=== PATIENT | female | born 1995 | race Caucasian/White ===

== ENCOUNTER 2016-06-15 06:33 | Day surgery (SDC) | payer OTHER ==
[~2016-06-15] VITALS: Ht 157.5 cm; Wt 62.6 kg
[~2016-06-15 06:33] MED LIST: FERROUS SULFAT325 M1 PO; HUMULIN N100 U/ML SC; NOVOLIN R100 U/ML SUBQ; PRENATAL VITAMI1 T10 PO
[2016-06-15] MEDS ORDERED: ONDANSETRON 4 MG/2 ML VIAL ONE (07:15)
[2016-06-15] MEDS ORDERED: DEXAMETHASONE 4 MG/ML VIAL ONE (07:15)
[2016-06-15] MEDS ORDERED: SUCCINYLCHOLINE CHLORIDE 200 MG/10 ML VIAL IVP ONE (07:15)
[2016-06-15] MEDS ORDERED: SEVOFLURANE 250 ML BTL INH ONE (07:15)
[2016-06-15] MEDS ORDERED: PROPOFOL 200 MG/20 ML VIAL IV ONE (07:15)
[2016-06-15] MEDS ORDERED: ONE DAILY FOR1 EACH PO (07:17)
[2016-06-15] MEDS ORDERED: MIDAZOLAM 2 MG/2 ML VIAL ONE (07:27)
[2016-06-15] MEDS ORDERED: MEPERIDINE 50 MG/ML SYR ONE (07:28)
[2016-06-15] MEDS ORDERED: fentaNYL 0.05 MG/ML VIAL ONE (07:28)
[2016-06-15] MEDS ORDERED: BUPIVACAINE-MPF/EPI 0.5% 10 ML VIAL INJ ONE (07:32)
[2016-06-15] MEDS ORDERED: diphenhydrAMINE 50 MG/ML VIAL IVP PRN (07:50)
[2016-06-15] MEDS ORDERED: LACTATED RINGERS 1,000 ML IV SCH (07:50)
[2016-06-15] MEDS ORDERED: HYDROmorphone 1 MG/ML AMP IVP PRN (07:50)
[2016-06-15] MEDS ORDERED: MEPERIDINE 25 MG/ML SYR IVP PRN (07:50)
[2016-06-15] MEDS ORDERED: ONDANSETRON 4 MG/2 ML VIAL IVP PRN ×2 (07:50→08:00)
[2016-06-15] MEDS ORDERED: ACETAMINOPHEN/CODEINE 300/30MG 1 TAB PO PRN (08:00)
[2016-06-15] MEDS ORDERED: MORPHINE SULFATE 4 MG/ML SYR IM/IVP PRN (08:00)
[2016-06-15] MEDS ORDERED: IBUPROFEN 800 MG TAB PO PRN (08:00)
[2016-06-15] MEDS ORDERED: MEPERIDINE 25 MG/ML SYR ONE (08:53)
== END 2016-06-15 11:20 | disposition home or self-care (01) ==
LOC: MDS 06:33 → MMU 06:34 → MDS 11:20
PROVIDERS: ATTEND Obstetrics & Gynecology
DX: Z30.2 Encounter for sterilization (principal)
CPT/HCPCS: 36415; 58600; 80053; 84702; 85025; 88302; J0330; J0690; J1100; J2175; J2250; J2270; J2405; J2704; J3010; J3490; J7060; J7120

== ENCOUNTER 2020-12-25 14:11 | Emergency (ER) | payer OTHER ==
[~2020-12-25] VITALS: Ht 157.5 cm; Wt 73.9 kg
[~2020-12-25 14:11] MED LIST changes: -FERROUS SULFAT325 M1 PO; +FOLI-119 PO; -HUMULIN N100 U/ML SC; -NOVOLIN R100 U/ML SUBQ; -PRENATAL VITAMI1 T10 PO
[2020-12-25 14:27] VITALS: BP 125/73
--- NOTE | 2020-12-25 14:30 | NUR ---
PT TO WAIT IN TENT.
--- NOTE | 2020-12-25 14:34 | NUR ---
DR. ARVIZU WITH PT IN TENT FOR FURTHER EVALUATION.
[2020-12-25] MEDS ORDERED: IBUPROFEN 600 MG TAB PO ONE (14:50)
--- NOTE | 2020-12-25 14:57 | NUR ---
25 Y/O FEMALE C/O LEFT LEG PAIN 8/10, HEADACHE X2DAYS, PT STATES SHE WAS SEEN AT [facility] AND PRESCRIBED TRAMADOL AND NAPROXEN WITH NO RELIEF. DENIES N/V, DENIES FEVER/CHILLS. DENIES PMH NKA
--- NOTE | 2020-12-25 15:21 | NUR ---
PT CALLED IN TENT FOR MD ORDERS, NO ANSWER. MD MADE AWARE.
--- NOTE | 2020-12-25 15:31 | NUR ---
PT CALLED IN TENT FOR SECOND TIME, NO ANSWER. MADE AWARE.
--- NOTE | 2020-12-25 15:41 | NUR ---
PT CALLED IN TENT FOR THIRD TIME, NO ANSWER. MADE AWARE.
--- NOTE | 2020-12-25 15:55 | NUR ---
PT IN TENT. MADE AWARE.
--- NOTE | 2020-12-25 16:17 | NUR ---
PT GIVEN CRUTCHES THAT WERE ADJUSTED TO PT'S SIZE AND HEIGHT. PT GIVEN ONE ON ONE INSTRUCTIONS ON HOW TO USE CRUTCHES AND PT SHOWED PROPPER DEMONSTRATION ON HOW TO USE THEM. RN AND PA NOTIFIED.
[2020-12-25] MEDS ORDERED: IBUP-2213 PO (16:22)
[2020-12-25 16:50] VITALS: BP 122/70
--- NOTE | 2020-12-25 16:51 | NUR ---
Patient discharged with v/s stable. Written and verbal after care instructions given [place] and explained. Patient alert, oriented and verbalized understanding of instructions. Ambulatory with steady gait. All questions addressed prior to discharge. ID band removed. Patient advised to follow up with PMD. Rx of IBUPROFEN 600MG PO Q6H PRN PAIN given. Patient educated on indication of medication including possible reaction and side effects. Opportunity to ask questions provided and answered.
== END 2020-12-25 16:51 | disposition home or self-care (01) ==
LOC: MED 14:11
DX: S93.402A Sprain of unspecified ligament of left ankle, initial encounter (principal); S09.90XA Unspecified injury of head, initial encounter; W19.XXXA Unspecified fall, initial encounter; Y93.89 Activity, other specified; Y92.89 Other specified places as the place of occurrence of the external cause; Y99.8 Other external cause status
CPT/HCPCS: 70450; 73590; 73610; 99284

== ENCOUNTER 2022-04-27 07:37 | Emergency (ER) | payer OTHER ==
[~2022-04-27] VITALS: Ht 154.9 cm; Wt 73.9 kg
[~2022-04-27 07:37] MED LIST changes: +IBUP-2213 PO
[2022-04-27 07:58] VITALS: BP 123/56
[2022-04-27] MEDS ORDERED: IBUPROFEN 600 MG TAB PO ONE (08:50)
[2022-04-27] MEDS ORDERED: DEXAMETHASONE 10 MG/ML VIAL PO ONE (08:50)
[2022-04-27] MEDS ORDERED: AMOXICILLIN 500 MG CAP PO ONE (09:00)
--- NOTE | 2022-04-27 09:00 | NUR ---
27/F WALKED IN C/O SORE THROAT AND INTERMITTENT FEVERS X 1 MONTH. PATIENT REPORTS DIFFICULTY SWALLOWING. AAO4, AMBULATORY, VITALS STABLE PMH: DENIES
[2022-04-27] MEDS ORDERED: LIDO100S PO (09:44)
[2022-04-27] MEDS ORDERED: MENT7.6L6 PO (09:44)
[2022-04-27] MEDS ORDERED: AMOX500C25 PO (09:44)
[2022-04-27] MEDS ORDERED: IBUP-2213 PO (09:44)
[2022-04-28] MEDS ORDERED: PHEN177S23 PO (15:36)
[2022-04-28] MEDS ORDERED: BENZ-300 PO (15:36)
== END 2022-04-27 09:50 | disposition home or self-care (01) ==
LOC: MED 07:37
DX: J02.9 Acute pharyngitis, unspecified (principal); Z20.822 Contact with and (suspected) exposure to COVID-19; R50.9 Fever, unspecified; R13.10 Dysphagia, unspecified; Z79.899 Other long term (current) drug therapy
CPT/HCPCS: 87081; 87426; 87804; 99284; J1100

== ENCOUNTER 2022-04-28 15:00 | Emergency (ER) | payer OTHER ==
[~2022-04-28] VITALS: Ht 157.5 cm; Wt 74.4 kg
[~2022-04-28 15:00] MED LIST changes: +AMOX500C25 PO; +LIDO100S PO; +MENT7.6L6 PO
[2022-04-28 15:03] VITALS: BP 109/64
--- NOTE | 2022-04-28 15:14 | NUR ---
PT AMB TO BED 12.
--- NOTE | 2022-04-28 15:20 | NUR ---
27 Y/O FEMALE BIB SELF C/O SORE THROAT X 4 DAYS . WAS SEEN IN THE ED 04/27/22 FOR STREP THROAT AND C/O LOWER ABD PAIN, VAGINAL PAIN, URINARY BURNING X 4 DAYS . DENIES ANY DISCHARGE, BLEEDING OR ITCHING. SEEN AT [facility] X2 DAYS AGO FOR BACTERIAL VAGINOSIS. DENIES ANY NV, DIARRHEA PMH: DENIES NKA
[2022-04-28] MEDS ORDERED: BENZ-300 PO (15:36)
[2022-04-28] MEDS ORDERED: PHEN177S23 PO (15:36)
--- NOTE | 2022-04-28 16:00 | NUR ---
Patient discharged with v/s stable. Written and verbal after care instructions ABOUT STREP THROAT given and explained. Patient alert, oriented and verbalized understanding of instructions. Ambulatory with steady gait. All questions addressed prior to discharge. ID band removed. Patient advised to follow up with PMD. Rx of CEPACOL, PHENOL given. Patient educated on indication of medication including possible reaction and side effects. Opportunity to ask questions provided and answered.
== END 2022-04-28 16:00 | disposition home or self-care (01) ==
LOC: MED 15:00
DX: J02.0 Streptococcal pharyngitis (principal); Z79.899 Other long term (current) drug therapy
CPT/HCPCS: 99282

== ENCOUNTER 2022-07-29 12:37 | Emergency (ER) | payer OTHER ==
[~2022-07-29] VITALS: Ht 157.5 cm; Wt 74.9 kg
[~2022-07-29 12:37] MED LIST changes: +BENZ-300 PO; +PHEN177S23 PO
[2022-07-29 12:49] VITALS: BP 142/95
--- NOTE | 2022-07-29 13:06 | NUR ---
PT AMBULATED TO ER BED 1
--- NOTE | 2022-07-29 13:10 | NUR ---
MD performed vaginal exam patient tolerated well. RN at bedside the whole procedure.
[2022-07-29] MEDS ORDERED: KETOROLAC 15 MG/ML VIAL IM ONE (13:20)
[2022-07-29 13:57] LABS: BASOPHILS % (AUTO) 0.4 % (0.0-2.0); EOSINOPHILS # (AUTO) 0.1 K/uL (0-0.4); EOSINOPHILS % (AUTO) 1.1 % (0.0-4.0); HEMATOCRIT 36.5 % (36-48); HEMOGLOBIN 12.7 g/dL (12.0-16.0); LYMPHOCYTES # (AUTO) 1.5 K/uL (2.5-16.5); LYMPHOCYTES % (AUTO) 19.7 % (20.5-51.1); MEAN CORPUSCULAR HEMOGLOBIN 29 pg (27-31); MEAN CORPUSCULAR HGB CONC 35 g/dL (33-37); MEAN CORPUSCULAR VOLUME 83.1 fL (80-94); MONOCYTES # (AUTO) 0.4 K/uL (0.8-1.0); MONOCYTES % (AUTO) 5.4 % (1.7-9.3); NEUTROPHILS # (AUTO) 5.6 K/uL (1.8-7.7); NEUTROPHILS % (AUTO) 73.4 % (42.2-75.2); PLATELET COUNT (AUTO) 222 K/uL (140-450); RED BLOOD CELL COUNT(AUTO) 4.39 MIL/uL (4.20-5.40); RED CELL DISTRIBUTION WIDTH 13.3 % (11.6-13.7); WHITE BLOOD COUNT (AUTO) 7.6 K/uL (4.8-10.8)
--- NOTE | 2022-07-29 14:00 | NUR ---
PT MOVED TO ER BED 2
[2022-07-29 14:07] LABS: APPEARANCE,URINE CLEAR (CLEAR); BILIRUBIN,URINE NEGATIVE (NEGATIVE); BLOOD, URINE NEGATIVE (NEGATIVE); COLOR,URINE YELLOW (YELLOW); LEUKOCYTE ESTERASE ,URINE NEGATIVE (NEGATIVE); NITRITE, URINE NEGATIVE (NEGATIVE); PH,URINE 6.5 (5.0-9.0); UGLUCOSE NEGATIVE (NEGATIVE)
[2022-07-29 14:12] LABS: ALBUMIN 4.1 g/dL (3.4-5.0); ANION GAP 13.1 (8-16); CARBON DIOXIDE 26.3 mmol/L (21-32); CREATININE 0.7 mg/dL (0.6-1.3); POTASSIUM 3.4 mmol/L (3.5-5.1); TOTAL BILIRUBIN 0.5 mg/dL (0.0-1.0)
--- NOTE | 2022-07-29 15:44 | NUR ---
Patient discharged with v/s stable. Written and verbal after care instructions given and explained. Patient verbalized understanding. Ambulatory with steady gait. All questions addressed prior to discharge. Advised to follow up with PMD.
== END 2022-07-29 15:43 | disposition home or self-care (01) ==
LOC: MED 12:37
DX: N83.202 Unspecified ovarian cyst, left side (principal); Z79.899 Other long term (current) drug therapy; Z79.1 Long term (current) use of non-steroidal anti-inflammatories (NSAID); Z79.2 Long term (current) use of antibiotics; Z98.51 Tubal ligation status
CPT/HCPCS: 36415; 76856; 80053; 81003; 81025; 85025; 87110; 87210; 87299; 93976; 96372; 99285; J1885; Q0092